=== PATIENT | male | born 1975 | race Caucasian/White ===

== ENCOUNTER 2019-01-25 18:05 | Inpatient (IN) ==
[2019-01-25] MEDS ORDERED: Piperacillin/Tazobactam 3.375 GM in 0.9 % Sodium Chloride Mini Bag 100 ML IVPB ONE (18:47)
[2019-01-25] MEDS ORDERED: 0.9 % Sodium Chloride 1,000 ML IVC ONE (18:48)
[2019-01-25] MEDS ORDERED: Morphine Sulfate 2 MG/ML SYRINGE IVP ONE (19:12)
--- NOTE | 2019-01-25 19:17 | Emergency Department Note ---
Disposition Clinical Impression: Septic joint Qualifiers: Septic arthritis location: hand Septic arthritis organism: due to unspecified organism Laterality: left Qualified Code(s): M00.9 - Pyogenic arthritis, unspecified Disposition: Admitted As Inpatient Condition: Good Time of Disposition: 20:23 Extremity Problem HPI - General Chief complaint: ED Extremity Problem,Nontraumatic Stated complaint: left index finger infection,needs admitted Time Seen by Provider: 01/25/19 18:46 Source: patient Mode of arrival: ambulatory Limitations: no limitations Nursing Notes Reviewed: Yes Vital Signs Reviewed: Yes - History of Present Illness HPI Narrative: 43 year old male presents to the eD with complaints of left index finger infection of which he obtained from a pocket knife that cut his figner while at work and then had it repaire ind the ED with sutures and then he went to grab his dog and it split it open and then got infected there after and required transfer to [facility] for jeffery placement and drain palced. Patient had followup with Hunter Troy today who removed the drain and is suspect that there may be a septic joint and has sent him here for admisison for OR wash out tomorrow. Pain Scale: 10 - Related Data Previous Rx's Medication Instructions Recorded Cephalexin [Keflex] 500 mg PO QID 7 Days capsule 01/21/19 Sulfamethoxazole/Trimeth DS 1 each PO BID 7 Days tablet 01/21/19 [Bactrim DS] Allergies Allergy/AdvReac Type Severity Reaction Status Date / Time No Known Allergies Allergy Verified 01/25/19 18:13 All systems ED: reviewed and negative except as stated. Review of Systems: As Per HPI Constitutional: Denies: fever, chills, weakness, weight change Eyes: Denies: eye pain, eye discharge, vision change ENT ED: Denies: ear pain, throat pain, dental pain, hearing loss, epistaxis, congestion, dysphagia Cardiovascular: Denies: chest pain, palpitations, dyspnea on exertion, edema, syncope Respiratory: Denies: cough, dyspnea, wheezes, hemoptysis, stridor Gastrointestinal: Denies: abdominal pain, nausea, vomiting, diarrhea, constipation, hematemesis, melena, hematochezia Genitourinary: Denies: urgency, dysuria, frequency, hematuria Musculoskeletal: Reports: as per HPI. Denies: back pain, neck pain, arthralgia, myalgia Integumentary: Denies: rash, abrasion, lesions Neurological: Denies: headache, weakness, numbness, paresthesias, confusion, abnormal gait, vertigo Psychiatric: Denies: anxiety, depression, suicidal thoughts, homicidal thoughts, auditory hallucinations, visual hallucinations Endocrine: Denies: fatigue Hematological/Lymphatic: Denies: easy bleeding, easy bruising Allergic/Immunologic: Denies: facial swelling, urticaria Past Medical History - Past Medical History Medical history: Reports: hypertension Psychiatric history: Reports: depression - Social History Smoking Status: Current every day smoker Smokeless Tobacco Status: No Alcohol use: Reports: none Drug use: Reports: none Physical Exam - General Limitations: no limitations General appearance: alert, in no apparent distress - Head Head exam: atraumatic, normocephalic, normal inspection - Eye Eye exam: Present: normal appearance, PERRL, EOMI - Expanded Eye Exam Pupils: Bilateral: reactive - ENT ENT exam: normal exam, normal oropharynx, mucous membranes moist - Expanded ENT Exam External ear exam: Present: normal external inspection Mouth exam: Present: normal external inspection Teeth exam: Present: normal inspection Throat exam: Present: normal inspection - Neck Neck exam: Present: normal inspection, full ROM, trachea midline - Chest Chest inspection: Present: normal inspection, symmetric chest wall rise - Respiratory Respiratory exam: Present: normal lung sounds bilaterally - Cardiovascular Cardiovascular exam: Present: regular rate, normal rhythm, normal heart sounds - Abdominal Exam Abdominal exam: Present: soft, Non-Tender. Absent: tenderness, distention, guarding, rebound, rigidity - Extremities Exam Extremities exam: Present: normal inspection, full ROM. Absent: tenderness, pedal edema - Expanded Upper Extremity Exam Shoulder exam: Present: normal inspection, full ROM Arm exam: Present: normal inspection, full ROM Elbow exam: Present: normal inspection, full ROM Forearm/Wrist exam: Present: normal inspection, full ROM Hand exam: Present: normal inspection, full ROM Hand L/R back image: 1 - erythematous, swollen, difficutly with range of motion, hardware presnt Vascular exam: Normal: capillary refill, radial pulse - Expanded Lower Extremity Exam Hip/Pelvis exam: Present: normal inspection, full ROM Upper leg exam: Present: normal inspection, full ROM Knee exam: Present: normal inspection, full ROM Lower leg exam: Present: normal inspection, full ROM Ankle exam: Present: normal inspection, full ROM Foot/toe exam: Present: normal inspection, full ROM Neurovascular/Tendon exam: Absent: motor deficit, sensory deficit, tendon deficit - Back Exam Back exam: Present: normal inspection, full ROM. Absent: tenderness - Neurological Exam Neurological exam: Present: alert, oriented X3 - Expanded Neurological Exam Patient oriented to: Present: person, place, time Coma Scale Eye Opening: Spontaneous Coma Scale Motor Response: Obeys Commands Coma Scale Verbal Response: Oriented Coma Scale Total: 15 - Psychiatric Psychiatric exam: Present: normal affect, normal mood - Skin Skin exam: Present: warm, dry, intact, normal color Course Course Narrative: I will page Dr. Tyler for reccs and then admit to medicine with vanc/zosyn therapy started - Consultations Consultation #1: discussed cse with Dr. Tyler and he plans to take the patient ot the OR tomorrow morning Time: 19:15 Consultation #2: discussed case with hospitalist and he accepts to medicine service. Time: 20:03 Vital Signs Temperature 98.9 F 01/25/19 18:13 Pulse Rate 83 01/25/19 18:13 Respiratory Rate 18 01/25/19 18:13 Blood Pressure 155/87 01/25/19 18:13 O2 Sat by Pulse Oximetry 96 01/25/19 18:13 Temperature 98.9 F 01/25/19 19:28 Pulse Rate 66 01/25/19 19:28 Respiratory Rate 16 01/25/19 19:28 Blood Pressure 130/77 01/25/19 19:28 O2 Sat by Pulse Oximetry 100 01/25/19 19:28 Oxygen Delivery Oxygen Delivery Room Air Extremity Problem, Nontraumati - Lab Data Result diagrams: 01/25/19 19:17 01/25/19 19:17 Lab Results 01/25/19 01/25/19 01/25/19 Range/Units 19:17 19:17 19:17 WBC 7.4 (4.3-11.1) K/mcL RBC 4.20 (4.19-5.50) M/mcL Hgb 13.4 (12.9-16.9) g/dL Hct 40.0 (37.5-50.1) % MCV 95.2 (83.0-100.0) fL MCH 31.9 (28.0-33.3) pg MCHC 33.5 (31.6-35.5) g/dL RDW 13.2 (11.5-14.5) % Plt Count 259 (140-400) K/mcL MPV 9.3 L (9.4-12.4) fL Immature Gran % 0.3 (0-4) % Seg Neutrophils % 52.0 % Lymphocytes % 38.5 % Monocytes % 5.7 % Eosinophils % 3.0 % Basophils % 0.5 % Neutrophils # 3.8 (1.6-8.9) K/mcL Lymphocytes # 2.8 (0.6-4.6) K/mcL Monocytes # 0.4 (0.0-1.3) K/mcL Eosinophils # 0.2 (0.0-0.6) K/mcL Basophils # 0.0 (0.0-0.2) K/mcL ESR (0-10) mm/hr Sodium 138 (136-145) mEq/L Potassium 3.3 L (3.5-5.1) mEq/L Chloride 107 (98-107) mEq/L Carbon Dioxide 26 (23-29) mEq/L BUN 6 (6-20) mg/dL Creatinine 0.92 (0.70-1.30) mg/dL Est GFR ( Amer) > 60 (> 60) Est GFR (Non-Af Amer) > 60 (> 60) BUN/Creatinine Ratio 7 (6-26) Glucose 118 H (70-105) mg/dL Calculated Osmolality 285 (280-300) Lactic Acid 1.2 (0.5-2.2) mmol/L Calcium 9.0 (8.6-10.3) mg/dL Total Bilirubin 0.2 L (0.3-1.0) mg/dL AST 9 L (13-39) Units/L ALT 10 (7-52) Units/L Alkaline Phosphatase 102 (34-104) Units/L C-Reactive Protein 23 H (Less than 10) mg/L Serum Total Protein 6.8 (6.4-8.9) g/dL Albumin 4.0 (3.5-5.7) g/dL Globulin 2.8 (2.4-3.5) g/dL Albumin/Globulin Ratio 1.4 (1.1-2.2) 01/25/19 Range/Units 19:17 WBC (4.3-11.1) K/mcL RBC (4.19-5.50) M/mcL Hgb (12.9-16.9) g/dL Hct (37.5-50.1) % MCV (83.0-100.0) fL MCH (28.0-33.3) pg MCHC (31.6-35.5) g/dL RDW (11.5-14.5) % Plt Count (140-400) K/mcL MPV (9.4-12.4) fL Immature Gran % (0-4) % Seg Neutrophils % % Lymphocytes % % Monocytes % % Eosinophils % % Basophils % % Neutrophils # (1.6-8.9) K/mcL Lymphocytes # (0.6-4.6) K/mcL Monocytes # (0.0-1.3) K/mcL Eosinophils # (0.0-0.6) K/mcL Basophils # (0.0-0.2) K/mcL ESR 38 H (0-10) mm/hr Sodium (136-145) mEq/L Potassium (3.5-5.1) mEq/L Chloride (98-107) mEq/L Carbon Dioxide (23-29) mEq/L BUN (6-20) mg/dL Creatinine (0.70-1.30) mg/dL Est GFR ( Amer) (> 60) Est GFR (Non-Af Amer) (> 60) BUN/Creatinine Ratio (6-26) Glucose (70-105) mg/dL Calculated Osmolality (280-300) Lactic Acid (0.5-2.2) mmol/L Calcium (8.6-10.3) mg/dL Total Bilirubin (0.3-1.0) mg/dL AST (13-39) Units/L ALT (7-52) Units/L Alkaline Phosphatase (34-104) Units/L C-Reactive Protein (Less than 10) mg/L Serum Total Protein (6.4-8.9) g/dL Albumin (3.5-5.7) g/dL Globulin (2.4-3.5) g/dL Albumin/Globulin Ratio (1.1-2.2)
[2019-01-25 19:33] LABS: Basophils % 0.5 %; Eosinophils # 0.2 K/mcL (0.0-0.6); Hemoglobin 13.4 g/dL (12.9-16.9); Immature Granulocytes % 0.3 % (0-4); Lymphocytes # 2.8 K/mcL (0.6-4.6); Lymphocytes % 38.5 %; Mean Corpuscular HGB Conc 33.5 g/dL (31.6-35.5); Mean Corpuscular Hemoglobin 31.9 pg (28.0-33.3); Mean Corpuscular Volume 95.2 fL (83.0-100.0); Mean Platelet Volume 9.3 fL (9.4-12.4); Monocytes # 0.4 K/mcL (0.0-1.3); Monocytes % 5.7 %; Neutrophils # 3.8 K/mcL (1.6-8.9); Platelet Count 259 K/mcL (140-400); Red Cell Distribution Width 13.2 % (11.5-14.5); White Blood Count 7.4 K/mcL (4.3-11.1)
[2019-01-25 19:53] LABS: Alanine Aminotransferase 10 Units/L (7-52); Albumin/Globulin Ratio 1.4 (1.1-2.2); Alkaline Phosphatase 102 Units/L (34-104); Aspartate Amino Transferase 9 Units/L (13-39); BUN/Creatinine Ratio 7 (6-26); Bilirubin,Total 0.2 mg/dL (0.3-1.0); Blood Urea Nitrogen 6 mg/dL (6-20); C-Reactive Protein 23 mg/L (Less than 10); Carbon Dioxide 26 mEq/L (23-29); Chloride 107 mEq/L (98-107); Globulin 2.8 g/dL (2.4-3.5); Glucose 118 mg/dL (70-105); Osmolality,Calculated 285 (280-300); Potassium 3.3 mEq/L (3.5-5.1); Sodium 138 mEq/L (136-145); Total Protein 6.8 g/dL (6.4-8.9); eGFR For African Americans > 60 (> 60); eGFR For Non-African Americans > 60 (> 60)
[2019-01-25] MEDS ORDERED: Tdap (Boostrix) Vaccine 0.5 ML SYRINGE IM ONE (20:02)
--- NOTE | 2019-01-25 21:28 | Internal Med History&Physical ---
Date of Encounter: 01/25/19 Time of Encounter: 21:20 Internal Medicine - H&P: HPI Chief complaint: Left finger pain Admitted From: Home Plans for Post Hospital Care: Home History of present illness: Mr. Miller is a 43 year old male with PMH Of PTSD, depression, HTN presented to the ED for left finger worsening. 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 Patient was a [employer] and he cleaned it, neosporin , and kept dressing changes. Pain at that time felt pain but was tolerable then it became worse and went to the ED where he got sutured. Patient then while picking up a dog busted the sutures and it became infected with severe pain, swelling, and numbness. Patient came back to the ED 3 days ago and was sent to [facility] where he underwent surgery. patient reported that he was recommended to stay another night without receiving IV abx, or pain meds and the patient did not feel need to stay there an additional night unless he is getting his pain and abx IV. The patient was offered to leave AMA and patient reported to have left without information, pain medications. Patient has been taking keflex and reported left finger worsneing sharp 15/10 pain and thus came to the ED. Personally reviewed patient's past medical, surgical, family and social history. Face to face encounter occurred on 01/25/2019 . CODE STATUS reviewed and is full code. Past Med Surg Social Fam HX - Past Medical History Medical history: hypertension Psychiatric history: depression - Past Surgical History Additional surgical history: right knee scope, L finger - Social History Smoking Status: Current every day smoker Packs per day: 1 Smokeless Tobacco Status: No Alcohol use: none Drug use: none Internal Medicine - H&P: Meds Cephalexin [Keflex] 500 mg PO QID 7 Days capsule 01/21/19 [Rx] Sulfamethoxazole/Trimeth DS [Bactrim DS] 1 each PO BID 7 Days tablet 01/21/19 [Rx] Allergy/AdvReac Type Severity Reaction Status Date / Time No Known Allergies Allergy Verified 01/25/19 18:13 All Systems PM: A 10-system review of systems was performed and is negative for pertinent findings except as documented above in the HPI. Review of systems: General: No unintentional weightloss, No fever Head: No headahce, No injury. Ears: No discharge, No earache Eyes: No drainage, No eye pain Mouth and Throat: No new ulcers, No pain Nose and Sinus: No new congestion, No pain, Respiratory: No cough, No sputum production, No dyspnea Cardiovascular: No chest pain, No palpitations. Gastrointestinal: No nausea, No vomiting. No abdominal pain. Genital Tract: No discharge, No pain Urinary Tract: No dysuria, No discharge. MSK: + new/worsening joint pain, + new/worsening muscle ache. Endocrine: No cold intolerance, No polyuria Psychological: No suicidal, No homocidal ideation. - Constitutional Vitals: Temp Pulse Resp BP Pulse Ox 98.9 F 66 16 130/77 100 01/25/19 19:28 01/25/19 19:28 01/25/19 19:28 01/25/19 19:28 01/25/19 19:28 Exam: General Appearance: Appearing as age, well-nourished in mild acute distress. Head: Atraumatic normocephalic Skin: Normal texture, normal turgor, warm, dry. left finger dressing present with decreased sensation to that hand. Eyes: Conjunctivae not pale with no erythema, drainage, or ulcers. Anicteric. Neck: No Lymphadenopathy in the anterior/posterior cervical chain. No thyromegaly, masses or ulcers. Trachea midline. Heart: RRR, no murmurs. Capillary refill 3 seconds Lungs: No accessory muscle usage, lungs clear to auscultation bilaterally, no wheezes or crackles. Extremities: No pitting edema, No clubbing, No cyanosis. Abdomen: Non-distended, normoactive bowel sounds. non-tender to palpation, no hepatomegally. No guarding. Neuro: AOx3. left hand decreased sensation MSK: Strength 5/5 Upper extremity equal bilaterally. Strength 5/5 Lower extremity equal bilaterally Internal Med - H&P Results - Labs CBC & Chem 7: 01/25/19 19:17 01/25/19 19:17 Labs: Short CBC 01/25/19 Range/Units 19:17 WBC 7.4 (4.3-11.1) K/mcL Hgb 13.4 (12.9-16.9) g/dL Hct 40.0 (37.5-50.1) % Plt Count 259 (140-400) K/mcL Neutrophils # 3.8 (1.6-8.9) K/mcL BMP 01/25/19 19:17 Sodium 138 Potassium 3.3 L Chloride 107 Carbon Dioxide 26 BUN 6 Creatinine 0.92 Glucose 118 H Calcium 9.0 Liver Function 01/25/19 Range/Units 19:17 Total Bilirubin 0.2 L (0.3-1.0) mg/dL AST 9 L (13-39) Units/L ALT 10 (7-52) Units/L Alkaline Phosphatase 102 (34-104) Units/L Albumin 4.0 (3.5-5.7) g/dL - Summary of Assessment and Plan Summary of Assessment and Plan: 1.Left finger septic joint: Patient is Left hand dominant. Failed outpatient antibiotics keflex and bactrim Vancomycin started. Pain med ordered. Orthopedic consultation 2.HTN uncontrolled: Unimproved with medications Started patient on Lisinopril 3.Cigarette Smoking: Nicotine patch 4.Depression: Failed outpatient medications Declined starting medication. NO SI or HI 5.Hyperglycemia: UA and A1c pending. DVT prophylaxis: Heparin Disposition: Patient anticipated hospital stay > 2 days - Time Spent With Patient Total time spent is greater than 37 minutes 50% in coordination of care (as d ocumented) at patient's floor/unit and/or counseling patient: Greater than 35 minutes
[2019-01-25] MEDS ORDERED: Naloxone 0.4 MG/ML INJ IVP PRN (21:43)
[2019-01-25] MEDS ORDERED: *HR* OxyCODONE Immed Rel 5 MG TABLET PO PRN (21:43)
[2019-01-25] MEDS ORDERED: Acetaminophen 325 MG TABLET PO PRN (21:43)
[2019-01-25] MEDS ORDERED: *HR* HYDROcodone/Acet 5/325 mg TABLET PO PRN (21:43)
[2019-01-25] MEDS ORDERED: Nicotine 2 MG GUM BC PRN (21:43)
[2019-01-25] MEDS ORDERED: Ringers Solution, Lactated 1,000 ML IVC SCH (21:45)
[2019-01-25] MEDS ORDERED: *HR* HYDROmorphone (PF) 1 MG/ML SYRINGE IVP ONE (21:46)
[2019-01-25] MEDS: Nicotine 14 MG PATCH.TD24 TD SCH (22:19)
[2019-01-25] MEDS: *HR* Heparin 5,000 UNIT/ML VIAL SQ SCH (22:19)
[2019-01-25 23:49] LABS: Bilirubin,Urine Negative (Negative); Blood,Urine Negative (Negative); Clarity,Urine Clear (Clear); Color,Urine Yellow (Yellow); Glucose,Urine (UA) Normal (Normal); Ketones,Urine Negative (Negative); Leukocyte Esterase,Urine Negative (Negative); Nitrite,Urine Negative (Negative); PH,Urine 6.5 pH Units (5.0-8.0); Protein,Urine Negative (Neg-Trace); Urobilinogen,Urine Normal (Normal)
[2019-01-26 04:59] LABS: Basophils # 0.1 K/mcL (0.0-0.2); Basophils % 0.7 %; Eosinophils # 0.2 K/mcL (0.0-0.6); Eosinophils % 2.6 %; Hematocrit 37.1 % (37.5-50.1); Hemoglobin 12.1 g/dL (12.9-16.9); Immature Granulocytes % 0.4 % (0-4); Lymphocytes % 39.8 %; Mean Corpuscular HGB Conc 32.6 g/dL (31.6-35.5); Mean Corpuscular Volume 98.1 fL (83.0-100.0); Mean Platelet Volume 9.6 fL (9.4-12.4); Monocytes # 0.4 K/mcL (0.0-1.3); Monocytes % 5.7 %; Neutrophils # 3.9 K/mcL (1.6-8.9); Platelet Count 207 K/mcL (140-400); Red Blood Count 3.78 M/mcL (4.19-5.50); Red Cell Distribution Width 13.4 % (11.5-14.5); Segmented Neutrophils % 50.8 %; White Blood Count 7.6 K/mcL (4.3-11.1)
[2019-01-26 05:07] LABS: Prothrombin Time 11.9 Seconds (9.4-12.1)
[2019-01-26 05:22] LABS: Alanine Aminotransferase 8 Units/L (7-52); Albumin 3.3 g/dL (3.5-5.7); Albumin/Globulin Ratio 1.4 (1.1-2.2); Alkaline Phosphatase 85 Units/L (34-104); Aspartate Amino Transferase 9 Units/L (13-39); BUN/Creatinine Ratio 7 (6-26); Bilirubin,Total 0.2 mg/dL (0.3-1.0); Blood Urea Nitrogen 6 mg/dL (6-20); Calcium 8.6 mg/dL (8.6-10.3); Carbon Dioxide 23 mEq/L (23-29); Chloride 110 mEq/L (98-107); Globulin 2.3 g/dL (2.4-3.5); Glucose 98 mg/dL (70-105); Osmolality,Calculated 282 (280-300); Phosphorous 3.8 mg/dL (2.7-4.5); Potassium 3.8 mEq/L (3.5-5.1); Sodium 137 mEq/L (136-145); Total Protein 5.6 g/dL (6.4-8.9); eGFR For African Americans > 60 (> 60); eGFR For Non-African Americans > 60 (> 60)
[2019-01-26] MEDS: *HR* Heparin 5,000 UNIT/ML VIAL SQ SCH ×2 (05:36→22:00)
--- NOTE | 2019-01-26 07:12 | Orthopedics Progress Note ---
Date of Encounter: 01/26/19 Time of Encounter: 07:08 Subjective Interval history: S: This patient is a 43-year-old male admitted from the office yesterday. about a week ago he sustained a laceration to the index finger dorsal PIP joint region which eventually got infected. He was seen at [place] where he underwent debridement and irrigation of the left index finger PIP joint for septic arthr itis followed by transarticular pinning. The patient left AGAINST MEDICAL ADVICE later that day and was eventually referred to me for evaluation. I did see him in the office yesterday where he was noted to have persistent swelling, redness, and a quarter-inch Zay drain from the joint with gross purulence emanating. Due to concern for persistent infection and the need for operative debridement the patient was referred to the emergency department for workup and admission in anticipation of I&D today. O: Afebrile on the vital signs are stable Dressing and splint on left index finger NV intact A: Septic arthritis of the left index finger proximal interphalageal joint P: Plan is for incision, drinage, irriation, and debridement of the left index finger. I anticipate he will need IV antibiotics for 4-6 weeks, with consult to infectious disease. The risks discussed included but were not limited to stiffness, bleeding, infection, blood clots, damage to neurovascular structures, tendons, ligaments, and bone. Also discussed was the risk of continued symptoms and possible need for further procedures. I did discuss the anesthesia risks including stroke, heart attack, and . I did discuss the reasonable, foreseeable postoperative course with the patient. The patient did wish to proceed and consent was obtained. Objective Vital signs: Vital Signs Temp Pulse Resp BP Pulse Ox 01/26/19 02:53 97.7 F 59 16 120/76 94 01/25/19 21:33 97.8 F 87 16 148/90 98 01/25/19 19:28 98.9 F 66 16 130/77 100 01/25/19 18:13 98.9 F 83 18 155/87 96 Intake and Output 01/25/19 01/25/19 01/26/19 15:59 23:59 07:59 Intake Total 580 / 580 0 / 0 Output Total 725 / 725 Balance -145 / -145 0 / 0 Intake: IV Fluids 100 / 100 Zosyn 3.375 GM In 0.9 % Sodium 100 / 100 Chloride (Mini-Bag +) 100 ML @ 25 mls/hr IVPB ONCE ONE Rx#: [id number] Oral 480 / 480 0 / 0 Output: Urine 725 / 725 Other: Meal Dinner Percent of Meal Consumed 100% Weight 83.915 kg 83.9 kg Blood Glucose* 90 Patient Weight 01/26/19 23:59 Weight 83.9 kg - Labs CBC & BMP: 01/26/19 04:08 01/26/19 04:08 Labs: Abnormal lab results RBC 3.78 M/mcL (4.19-5.50) L 01/26/19 04:08 Hgb 12.1 g/dL (12.9-16.9) L 01/26/19 04:08 Hct 37.1 % (37.5-50.1) L 01/26/19 04:08 MPV 9.3 fL (9.4-12.4) L 01/25/19 19:17 ESR 38 mm/hr (0-10) H 01/25/19 19:17 Potassium 3.3 mEq/L (3.5-5.1) L 01/25/19 19:17 Chloride 110 mEq/L (98-107) H 01/26/19 04:08 Glucose 118 mg/dL (70-105) H 01/25/19 19:17 Total Bilirubin 0.2 mg/dL (0.3-1.0) L 01/26/19 04:08 AST 9 Units/L (13-39) L 01/26/19 04:08 C-Reactive Protein 23 mg/L (Less than 10) H 01/25/19 19:17 Serum Total Protein 5.6 g/dL (6.4-8.9) L 01/26/19 04:08 Albumin 3.3 g/dL (3.5-5.7) L 01/26/19 04:08 Globulin 2.3 g/dL (2.4-3.5) L 01/26/19 04:08 Consult Discharge Plan - Plan Referrals: Dina Hernandez, [employer] [Primary Care Provider] -
[2019-01-26 07:49] LABS: Estimated Average Glucose 126 mg/dl
--- NOTE | 2019-01-26 07:53 | Internal Med Progress Note ---
Hospitalist Progress Note - Encounter Date of Encounter: 01/26/19 Time of Encounter: 07:53 - Subjective Interval History: Patient is rude and demanding and unrealistic, plus seems unable to comprehend seriousness of current finger infection despite mother at bedside pleading with him to stay in hospital, wait for surgery, and get IV abx. Says he's uncom fortable and wants to smoke, wants to walk around, wants to eat, etc. Denies fever, CP, SOB, leg swelling, decreased urination, rash other than L index finger. Does say it is draining pus. - Exam Vitals: Temp Pulse Resp BP Pulse Ox 97.7 F 59 16 120/76 94 01/26/19 02:53 01/26/19 02:53 01/26/19 02:53 01/26/19 02:53 01/26/19 02:53 Exam: General: NAD, good eye contact, disheveled, scowling Thoracic: Normal breath sounds b/l, no wheezing or crackles Cardio: Normal S1 and S2, regular rate and rhythm Abdomen: Soft, nontender Extremities: Warm, well perfused. DP pulses 2+ b/l. No pedal edema. Skin: L index finger with PIP swelling and purulent discharge/drainage Neuro: Awake, fully oriented. Speech fluent - Summary of Assessment and Plan Summary of Assessment and Plan: 1.Left finger septic joint: Patient is Left hand dominant. Failed outpatient antibiotics keflex and bactrim - empiric vanc and zosyn - pain control prn - Orthopedic consultation - to OR today 2.HTN uncontrolled: - new Lisinopril 3.Cigarette Smoking: Nicotine patch and gum prn 4.Depression: Declined starting medication. NO SI or HI 5. Impaired fasting glucose: a1c 6, will need outpatient follow up PPx: sqh Tele: no Activity: up ad rukhsana FEN: NPO until surgery then regular, no MIVF Lines: PIV Consults: Ortho, ID Code: Full Dispo: patient requires inpatient eval and management at this time, anticipate 2-3 days, will be homegoing Internal Medicine: Result - Labs CBC & Chem 7: 01/26/19 04:08 01/26/19 04:08 Labs: Short CBC 01/25/19 01/26/19 Range/Units 19:17 04:08 WBC 7.4 7.6 (4.3-11.1) K/mcL Hgb 13.4 12.1 L (12.9-16.9) g/dL Hct 40.0 37.1 L (37.5-50.1) % Plt Count 259 207 (140-400) K/mcL Neutrophils # 3.8 3.9 (1.6-8.9) K/mcL BMP 01/25/19 01/26/19 19:17 04:08 Sodium 138 137 Potassium 3.3 L 3.8 Chloride 107 110 H Carbon Dioxide 26 23 BUN 6 6 Creatinine 0.92 0.88 Glucose 118 H 98 Calcium 9.0 8.6 Liver Function 01/25/19 01/26/19 Range/Units 19:17 04:08 Total Bilirubin 0.2 L 0.2 L (0.3-1.0) mg/dL AST 9 L 9 L (13-39) Units/L ALT 10 8 (7-52) Units/L Alkaline Phosphatase 102 85 (34-104) Units/L Albumin 4.0 3.3 L (3.5-5.7) g/dL Urine 01/25/19 Range/Units 23:25 Urine Color Yellow (Yellow) Urine Clarity Clear (Clear) Urine pH 6.5 (5.0-8.0) pH Units Ur Specific [place] 1.010 (1.010-1.025) Urine Protein Negative (Neg-Trace) mg/dL Urine Glucose (UA) Normal (Normal) mg/dL - ABG Interpretation ABG results: PT/INR, D-dimer PT 11.9 Seconds (9.4-12.1) 01/26/19 04:08 Consult Discharge Plan - Plan Referrals: Dina Hernandez, [employer] [Primary Care Provider] -
[2019-01-26] MEDS ORDERED: Piperacillin/Tazobactam 3.375 GM in 0.9 % Sodium Chloride Mini Bag 100 ML IVPB SCH (08:00)
[2019-01-26] MEDS: Nicotine 14 MG PATCH.TD24 TD SCH (09:30)
--- NOTE | 2019-01-26 11:21 | Infectious Disease Consult ---
Infectious Disease-Consult - Encounter Date/Time Date of Encounter: 01/26/19 Time of Encounter: 11:17 - Data of Consult Patient: new to practice Reason for consult: Left index finger septic arthritis Consult date: 01/26/19 Requesting Physician: Wellington Juan Primary Care Provider: Dina Hernandez BROKER ASSISTANT - HPI HPI: Mr. Miller is a 43-year-old male with past medical history of hypertension, depression, and PTSD. The patient was admitted to the hospital 01/25/19 for left index finger septic arthritis. We are consulted to for further workup and treatment recommendations for left index finger septic arthritis. Briefly, the patient is a 43-year-old male with a past medical history as stated above. The patient presented to the emergency department at the direction of the orthopedics/hand team with complaints of left index finger septic arthritis. Last Friday, the patient sustained a laceration to his left index finger with a pocket knife. He treated himself at home and the wound was doing well until Friday when he went to grab his dog and the wound split back open. He was evaluated in the emergency department and had sutures placed. They discharged him on Bactrim and Keflex. 2 days later, he had progressively worsening redness and swelling and re-presented to the emergency department. He was then transferred to [facility] where he underwent some sort of surgical procedure that involved placement of hardware and a drain. He signed out AMA and proceeded to take the Keflex and Bactrim that he had left at home. He saw his PCP yesterday who then referred him to Dr. Kirkland who then advised him to come to the emergency department for evaluation. Upon arrival, he was afebrile hemodynamically stable. His white blood cell count was normal. Lactic acid and renal function were within normal limits. Urinalysis was negative for pyuria. ESR is elevated at 38 with a CRP of 23. Blood cultures were obtained 2 sets and are pending. He was started on vancomycin and Zosyn and was admitted to the hospital for further evaluation. Since admission, the patient has remained afebrile hemodynamically stable. His white blood cell count is normal. Orthopedics has been consulted and they are planning an operative I&D later today. Currently, he is on vancomycin and Zosyn. We have been asked to evaluate and make further recommendations. During my exam today, the patient endorses a history as stated above. He denies fevers, chills, rigors. He denies any headache or neck pain. Denies chest pain, shortness of breath, or cough. Denies nausea, vomiting, diarrhea, const ipation. Denies abdominal pain or urinary complaints. Denies oral thrush or skin rashes. Complains pain in the left index finger with intermittent radiation up the hand into his arm all the way up to his shoulder. He states his finger is red and swollen and warm to touch. The patient lives at home. He smokes pack of cigarettes per day. Denies alcohol or illicit drug use. Denies recent travel. Has dogs at home, but denies any bites or scratches. Denies chronic infectious diseases. - ROS Review of Systems: All systems reviewed and no additional remarkable complaints except as stated. - Results CBC & Chem 7: 01/26/19 04:08 01/26/19 04:08 - Exam Vitals: Temp Pulse Resp BP Pulse Ox 98.3 F 65 16 144/88 95 01/26/19 08:02 01/26/19 08:02 01/26/19 08:02 01/26/19 08:02 01/26/19 08:02 Exam: Head: Atraumatic, normal inspection, normocephalic. Eye: EOMI, PERRLA, no scleral icterus noted. ENT: Mucous membranes moist. No odontogenic infection noted. Neck: Normal inspection, no meningismus. Respiratory: Clear to auscultation. No rales, respiratory distress, rhonchi, or wheezes noted. Cardiovascular: Regular rate and rhythm, S1 and S2 audible. No murmurs, rubs, or gallops. GI: Soft, nondistended, normal bowel sounds. Extremities:No joint swelling, pedal edema, or tenderness noted. Left index finger dressing/flank clean, dry, and intact. Back: Normal inspection. No vertebral tenderness noted. Neurological: Alert, oriented 3, no focal deficits. Psychiatric: normal affect, agitated. Skin: Dry, intact, warm. Normal color. No rashes. Cephalexin [Keflex] 500 mg PO QID 7 Days capsule 01/21/19 [Rx] Sulfamethoxazole/Trimeth DS [Bactrim DS] 1 each PO BID 7 Days tablet 01/21/19 [Rx] Allergy/AdvReac Type Severity Reaction Status Date / Time ketchup Allergy Hives Verified 01/25/19 23:19 shellfish derived Allergy Anaphylaxis Verified 01/25/19 23:19 - Assessment and Plan (1) Septic joint Current Visit: Yes Status: Acute Location: Left index finger PIP. Causative organism: I was able to call the micro-lab at [facility] who tells me that his previous intra-op cultures are positive for MSSA and coag-negative staph. Secondary to recent laceration. Tetanus vaccine UTD (received in the ED). Status post I&D at [facility] 01/23/19. Exact details unclear. Orthopedics consult. Planning operative debridement later today. ESR elevated at 38, CRP 23. Currently on vancomycin and Zosyn. Qualifiers: Septic arthritis location: hand Septic arthritis organism: due to unspecified organism Laterality: left Qualified Code(s): M00.9 - Pyogenic arthritis, unspecified SNOMED Code(s): 460911018 (2) Cellulitis Current Visit: No Status: Acute Location: Left index finger. Causative organism: MSSA coag-negative staph. Likely secondary to recent laceration. Currently on Vanc and Zosyn. Qualifiers: Site of cellulitis: unspecified site Qualified Code(s): L03.90 - Cellulitis, unspecified SNOMED Code(s): 527984161 (3) Tobacco use Current Visit: Yes Status: Acute Reports smoking 1 PPD. NRT per the primary team. SNOMED Code(s): 722077947 - Recommendations Recommendations: Get culture results from [facility]. Await blood cultures to finalize. Await intra-op cultures and findings. Please send specimen for culture (aerobic, anaerobic, AFB, and fungal). Wound care per ortho's recommendations. Continue Vancomycin IV. Pharmacy to dose. Goal trough ~15. Continue Zosyn 3.37 grams IV Q8H. Duration of treatment depends on the clinical picture. Monitor labs and for drug toxicity and dose-adjust antibiotics. Past Med Surg Social Fam HX - Past Medical History Attestation: Yes The following information was validated with the patient. Source: patient, old records reviewed, nursing notes reviewed Medical history: hypertension Psychiatric history: depression - Past Surgical History Additional surgical history: right knee scope, L finger - Social History Smoking Status: Current every day smoker Packs per day: 1 Smokeless Tobacco Status: No Alcohol use: none Drug use: none Occupational status: employed Current living situation: Home - Independent Activity Level: Independent ambulation Recent Out of Country Travel Within the Last 8 Weeks: No Exposure or Possible Exposure to Illness During Travel: No Consult Discharge Plan - Plan Referrals: Dina Hernandez BROKER ASSISTANT [Primary Care Provider] - - Attending Attestation I have personally performed a face to face evaluation on this patient. I have reviewed and agree with the care plan. This is an addendum to original report dictated by Ania Contreras CNP. Please refer to Ania's note for full detail. Agree with above history of present illness, review of system and physical exam findings. Patient was seen by me after surgery. He discussed his room. Clinically doing well. Complains of some pains finger. Asking for food. Assessment and plan: Septic arthritis of the left index [facility] and coag-negative staph with final susceptibility pending Status post I&D earlier today, Intra-Op cultures pending Tobacco abuse Poor dentition Recommendations For now we will continue vancomycin and will call vancomycin trough 1015 Continue Zosyn Await cultures to finalize Once cultures finalize we will tailor antibiotics accordingly Duration of treatment probably 2 weeks of IV followed by 2 weeks of oral if an o ral options exist Monitor labs and for drug toxicity
[2019-01-26] MEDS ORDERED: Albuterol 2.5 MG/3 ML NEBULIZER IH ONE (13:50)
[2019-01-26] MEDS ORDERED: *HR* OxyCODONE Immed Rel 5 MG TABLET PO PRN (13:52)
--- NOTE | 2019-01-26 13:52 | Anesthesia Evaluation PreOp ---
Date of Encounter: 01/26/19 Time of Encounter: 14:00 - Past History Planned Operation: Incision Drainage Left Hand Cardiac History: HTN Pulmonary History: Smoker ASSISTANT REAL ESTATE MANAGER History: Denies Any Significant HX Other Medical History: Denies Any Significant HX Alcohol Use: none Drug use: none Medications and Allergies Cephalexin [Keflex] 500 mg PO QID 7 Days capsule 01/21/19 [Rx] Sulfamethoxazole/Trimeth DS [Bactrim DS] 1 each PO BID 7 Days tablet 01/21/19 [Rx] Allergy/AdvReac Type Severity Reaction Status Date / Time ketchup Allergy Hives Verified 01/25/19 23:19 shellfish derived Allergy Anaphylaxis Verified 01/25/19 23:19 - Meds/Allergy Pre-op Review Medications Reviewed: Yes Allergies Reviewed: Yes Beta Blockers on Current Med List: No Anesthesia Results - Labs 01/26/19 04:08 01/26/19 04:08 Anesthesia Exam Vital Signs/O2 Sat/Glucose, Most Current Temp Pulse Resp BP Pulse Ox 01/26/19 12:26 98.4 F 57 14 137/85 97 Height: 5'10 Weight: 184 lbs NPO (# of Hours): MN Pain Scale: 0 - HEENT Pupil (Motor): Pupils equal, EOMI Mallampati: II Teeth: Missing, Poor dentition Oral Opening: Greater than 3 - ASSISTANT REAL ESTATE MANAGER LOC: Oriented ASSISTANT REAL ESTATE MANAGER Motor: Normal RUE, Normal LUE, Normal RLE, Normal LLE, Normal Face ASSISTANT REAL ESTATE MANAGER Sensory: Normal: RUE, LUE, RLE, LLE, Face - Cardiac Rhythm: Regular Murmur: None JVD: No Carotid Bruit: No - Pulmonary Breath Sounds: bilateral Clear Respiratory Effort: Symmetrical Anesthesia Assess/Plan ASA Score: 2 Level of consciousness: Cooperative, Oriented Anesthetic Plan: General Autologous Blood: No Monitoring Plan: Standard Monitors Recovery Plan: Other (Discussed GA, agrees to proceed)
[2019-01-26] MEDS ORDERED: Albuterol 2.5 MG/3 ML NEBULIZER ONE (13:56)
[2019-01-26] MEDS ORDERED: Famotidine 20 MG/2 ML VIAL ONE (13:58)
[2019-01-26] MEDS ORDERED: Dexamethasone 4 MG/ML VIAL ONE (13:58)
[2019-01-26] MEDS ORDERED: *HR* FentaNYL (PF) 100 MCG/2 ML VIAL ONE (13:58)
[2019-01-26] MEDS ORDERED: Lidocaine -MPF 2% 2 ML VIAL ONE (13:58)
[2019-01-26] MEDS ORDERED: *HR* Propofol 200 MG/20 ML VIAL IVP ONE (13:58)
[2019-01-26] MEDS ORDERED: Acetaminophen IV 1,000 MG/100 ML INFUS..BTL ONE (13:58)
[2019-01-26] MEDS ORDERED: Ondansetron 4 MG/2 ML VIAL ONE (13:58)
[2019-01-26] MEDS ORDERED: Bupivacaine/EPI 1:200k 0.5%PF 10 ML VIAL ONE (14:01)
[2019-01-26] MEDS ORDERED: Nicotine 21 MG PATCH.TD24 TD SCH (15:00)
--- NOTE | 2019-01-26 15:07 | Orthopedic Operative Note ---
Date of procedure: 01/26/19 Procedure: OPERATIVE REPORT SURGEON: Greg Tyler MD PREOPERATIVE DIAGNOSIS: Left index finger proximal interphalangeal joint septic arthritis POSTOPERATIVE DIAGNOSIS: Left index finger proximal interphalangeal joint septic arthritis PROCEDURE: Pin removal from the left index finger proximal interphalangeal joint with incision, drainage, irrigation, and debridement of the left index finger and proximal interphalangeal joint ANESTHESIA: Gen. anesthesia SPECIMENS: Left index finger proximal interphalangeal joint swabs for culture, both aerobic and anaerobic PREOPERATIVE NOTE The surgical plan was reviewed with the patient. The risks, benefits, alternatives, and potential complications of this procedure were discussed with the patient including injury to veins, arteries, nerves, tendons, ligaments, and bone. Also discussed were the risks of infection, bleeding, pain, blood clots, the possible need for a blood transfusion, the possible need for further procedures, heart attack, stroke, and . Additional risks include persistent infection and the need for further debridements. All of this was explained in simple terms, and the patient verbalized understanding and wished to proceed. Consent was given to proceed with surgery. PROCEDURE: The patient was seen in the preoperative holding area where the identify and the consent were confirmed. The left index finger was marked. Final questions were answered. The patient was brought back to the operating room and placed supine on the operating room table. A huddle was performed with the patient and all vital surgical team members confirming patient identity, the correct procedure, and the correct operative site. Gen. anesthesia was administered. The operative extremity was prepped and draped in the usual sterile fashion. A surgical time out was performed immediately preceding the incision with all personnel in the operating room to confirm patient identity, the correct operative site and extremity, correct radiographic studies, availability of appropriate surgical equipment, and agreement on the planned procedure. The tourniquet was inflated without exsanguination. There is a transverse surgical wound over the dorsal index proximal interphalangeal joint. The stitches were taken down and a small amount of gross purulence was returned from the wound. This was swabbed for culture. The wound was full-thickness down to the joint, through the central slip. Due to the deep infection and contam ination of the K wire, this was removed uneventfully with a plier. The cartilage surfaces of the proximal phalanx and middle phalanx were intact with the exception of the K wire hole. The wound was copiously irrigated with 3 L of saline. There is no devitalized tissue. Due to concern for difficulty of clearing the infection with foreign material the decision was made to close the skin without any pinning of the joint or repairing of the tendon. The skin was closed loosely with interrupted 4-0 nylon stitches. There was a drain hole distally that was left open to allow for drainage. A soft, sterile dressing was applied followed by an AlumaFoam splint to keep the PIP joint extended. The tourniquet was deflated. The instrument, sponge, and needle counts were correct after wound closure. POST OPERATIVE PLAN: Continue IV antibiotics until cultures delineate. The infectious disease specialists are consulted and I anticipate 4-6 weeks of IV antibiotics. The patient is aware of the risk of needing repair or reconstruction of the central slip in the future or the need for further debridements for persistent infection. He is aware of the risk of needing fusion of the PIP joint in the future or even amputation. Was there an economic research assistant present: No Estimated blood loss (cc): 1
[2019-01-26] MEDS ORDERED: Naloxone 0.4 MG/ML INJ IVP PRN (15:41)
[2019-01-26] MEDS ORDERED: Nicotine 2 MG GUM BC PRN (15:41)
[2019-01-26] MEDS ORDERED: Acetaminophen 325 MG TABLET PO PRN (15:41)
--- NOTE | 2019-01-26 16:00 | Anesthesia Evaluation Post Op ---
Date of Encounter: 01/26/19 Time of Encounter: 16:00 - Vital Signs Vital Signs: Vital Signs/O2 Sat/Glucose, Most Current Temp Pulse Resp BP Pulse Ox 01/26/19 15:24 97.1 F L 54 16 121/62 99 01/26/19 15:14 53 17 117/64 99 01/26/19 15:04 52 14 110/69 96 01/26/19 14:54 98.1 F 55 16 92/46 92 01/26/19 12:26 98.4 F 57 14 137/85 97 - Lungs Lungs: Clear Ascult./Percussion - Airway Airway: Non-obstructed - Cardiovascular Regular Rate - Mental Status Mental Status: Alert & Oriented, Answers Appropriately - Pain Pain Scale: 0 - Nausea Vomiting Nausea Vomiting: Not Present - Hydration Hydration: Tolerates oral liquids - Discharge PostOp Status: Transfer Patient to floor
[2019-01-26] MEDS: *HR* HYDROcodone/Acet 5/325 mg TABLET PO PRN ×2 (16:15→22:19)
[2019-01-26] MEDS: Piperacillin/Tazobactam 3.375 GM in 0.9 % Sodium Chloride Mini Bag 100 ML IVPB SCH (16:15)
[2019-01-26] MEDS: *HR* OxyCODONE Immed Rel 5 MG TABLET PO PRN (20:05)
[2019-01-27] MEDS: *HR* OxyCODONE Immed Rel 5 MG TABLET PO PRN ×3 (06:18→17:13)
[2019-01-27] MEDS: *HR* Heparin 5,000 UNIT/ML VIAL SQ SCH ×2 (06:27→14:24)
--- NOTE | 2019-01-27 07:18 | Orthopedics Progress Note ---
Date of Encounter: 01/27/19 Time of Encounter: 07:16 Subjective Interval history: S: The patient is resting in bed comfortably with expected pain to the left index finger O: Afebrile on the vital signs are stable The stitches are intact Mild swelling of the digit. Slight improved redness over the index finger PIP joint region No purulence or significant drainage Neurovascularly intact distally Cultures pending A: I and D of the left index finger PIP joint for septic arthritis P: Continue local wound care, PIP extension splinting, and IV antibiotics under the direction of infectious disease specialists. Follow-up cultures. Objective Vital signs: Vital Signs Temp Pulse Resp BP Pulse Ox 01/27/19 06:59 98.1 F 65 15 144/87 97 01/27/19 03:34 97.8 F 61 17 148/91 97 01/26/19 23:42 97.8 F 60 17 137/92 96 01/26/19 18:40 98.5 F 77 18 151/72 96 01/26/19 17:40 97.9 F 56 18 152/81 98 01/26/19 17:02 97.9 F 63 18 145/81 98 01/26/19 16:35 98.1 F 66 16 149/84 97 01/26/19 16:00 98.1 F 68 16 141/80 98 01/26/19 15:24 97.1 F L 54 16 121/62 99 01/26/19 15:14 53 17 117/64 99 01/26/19 15:04 52 14 110/69 96 01/26/19 14:54 98.1 F 55 16 92/46 92 01/26/19 12:26 98.4 F 57 14 137/85 97 01/26/19 08:02 98.3 F 65 16 144/88 95 Intake and Output 01/26/19 01/26/19 01/27/19 15:59 23:59 07:59 Intake Total 100 / 450 350 / 450 100 / 100 Output Total 401 / 401 600 / 600 Balance -301 / 49 350 / 49 -500 / -500 Intake: IV Fluids 100 / 450 350 / 450 100 / 100 Zosyn 3.375 GM In 0.9 % Sodium 100 / 200 100 / 200 100 / 100 Chloride (Mini-Bag +) 100 ML @ 25 mls/hr IVPB Q8HR [facility] Rx#: [id number] Vancocin 1,250 MG In 0.9 % 250 / 250 Sodium Chloride 250 ML @ 167 mls/hr IVPB Q12H [facility] Rx#: [id number] Output: Urine 400 / 400 600 / 600 Estimated Blood Loss Other: Meal Dinner Percent of Meal Consumed 100% Blood Glucose* 91 - Labs CBC & BMP: 01/26/19 04:08 01/26/19 04:08 Labs: Abnormal lab results RBC 3.78 M/mcL (4.19-5.50) L 01/26/19 04:08 Hgb 12.1 g/dL (12.9-16.9) L 01/26/19 04:08 Hct 37.1 % (37.5-50.1) L 01/26/19 04:08 MPV 9.3 fL (9.4-12.4) L 01/25/19 19:17 ESR 38 mm/hr (0-10) H 01/25/19 19:17 Potassium 3.3 mEq/L (3.5-5.1) L 01/25/19 19:17 Chloride 110 mEq/L (98-107) H 01/26/19 04:08 Glucose 118 mg/dL (70-105) H 01/25/19 19:17 Hemoglobin A1c 6.0 % (-5.6) H 01/26/19 04:08 Total Bilirubin 0.2 mg/dL (0.3-1.0) L 01/26/19 04:08 AST 9 Units/L (13-39) L 01/26/19 04:08 C-Reactive Protein 23 mg/L (Less than 10) H 01/25/19 19:17 Serum Total Protein 5.6 g/dL (6.4-8.9) L 01/26/19 04:08 Albumin 3.3 g/dL (3.5-5.7) L 01/26/19 04:08 Globulin 2.3 g/dL (2.4-3.5) L 01/26/19 04:08 Consult Discharge Plan - Plan Referrals: Dina Hernandez, OIL PIPE INSPECTOR [Primary Care Provider] -
[2019-01-27] MEDS: Piperacillin/Tazobactam 3.375 GM in 0.9 % Sodium Chloride Mini Bag 100 ML IVPB SCH ×2 (08:04)
--- NOTE | 2019-01-27 10:29 | Infectious Disease Progress No ---
ID Progress Note Date of Encounter: 01/27/19 Time of Encounter: 10:27 - Subjective Subjective: Patient seen and examined. No acute events noted overnight. Patient states he feels better today. Denies fevers, chills, rigors. Denies chest pain, shortness of breath, or cough. Denies nausea, vomiting, diarrhea, or constipation. Denies abdominal pain or urinary complaints. States the pain to his left index finger and arm are improved. Denies oral thrush or skin rashes. States appetite is good. States she has not had a bowel movement since admission. - Objective CBC & Chem 7: 01/26/19 04:08 01/26/19 04:08 - Exam Vitals: Temp Pulse Resp BP Pulse Ox 98.2 F 70 16 158/90 97 01/27/19 10:17 01/27/19 10:17 01/27/19 10:17 01/27/19 10:17 01/27/19 10:17 Exam: Head: Atraumatic, normal inspection, normocephalic. Eye: EOMI, PERRLA, no scleral icterus noted. ENT: Mucous membranes moist. No odontogenic infection noted. Neck: Normal inspection, no meningismus. Respiratory: Clear to auscultation. No rales, respiratory distress, rhonchi, or wheezes noted. Cardiovascular: Regular rate and rhythm, S1 and S2 audible. No murmurs, rubs, or gallops. GI: Soft, nondistended, normal bowel sounds. Extremities:No joint swelling, pedal edema, or tenderness noted. Left index finger dressing clean, dry, and intact. Neurological: Alert, oriented 3, no focal deficits. Psychiatric: normal affect, agitated. Skin: Dry, intact, warm. Normal color. No rashes. - Assessment and Plan (1) Septic joint Status: Acute Location: Left index finger PIP. Causative organism: I was able to call the micro-lab at [facility] who tells me that his previous intra-op cultures are positive for MSSA and coag-negative staph. Secondary to recent laceration. Highly likely CONS is contaminant. Tetanus vaccine UTD (received in the ED). Status post I&D at [facility] 01/23/19. Exact details unclear. Orthopedics consult. Status post PEG removal from the left index finger proximal interphalangeal joint with incision, drainage, irrigation, and debridement of the left index finger and proximal interphalangeal joint 01/26/[address] Tyler. Operative note reviewed. Intraoperative cultures are pending. ESR elevated at 38, CRP 23. Currently on Zosyn. Qualifiers: Septic arthritis location: hand Septic arthritis organism: due to unspecified organism Laterality: left Qualified Code(s): M00.9 - Pyogenic arthritis, unspecified SNOMED Code(s): 442572690 (2) Cellulitis Status: Inactive Location: Left index finger. Causative organism: MSSA. Likely secondary to recent laceration. Currently on Vanc and Zosyn. Qualifiers: Site of cellulitis: other site Qualified Code(s): L03.818 - Cellulitis of other sites SNOMED Code(s): 997880284 (3) Tobacco use Status: Acute Reports smoking 1 PPD. NRT per the primary team. SNOMED Code(s): 783564300 - Recommendations Recommendations: Await blood cultures to finalize. Await intra-op cultures. Wound care per ortho's recommendations. Discontinue Vanc and Zosyn. Start cefazolin 2 grams IV Q8H. Duration of treatment depends on the clinical picture, but likely 4-6 weeks. Monitor labs and for drug toxicity and dose-adjust antibiotics. Consult Discharge Plan - Plan Referrals: [facility] [Other] - 01/28/19 4:00 pm ( Go to the [place] [facility] - [facility]) Ania Contreras MACHINE ATTENDANT [Advanced Practice Nurse] - 02/11/19 3:20 pm Dina Hernandez CNP [Primary Care Provider] - Greg Tyler MD [Partnered Physician] - 02/03/19 9:10 am Prescriptions: Ceftriaxone Sodium [Ceftriaxone] 2 gm IV Q24H #14 vial.port Prescription Printed Oxycodone HCl 5 mg PO Q8H PRN 7 Days #10 tablet PRN Reason: Analgesia Prescription Printed - Attending Attestation I have personally performed a face to face evaluation on this patient. I have re viewed and agree with the care plan. History and Exam by me shows: Assessment and plan: Septic arthritis of the left index finger [facility] MSSA and coag-negative staph with final susceptibility pending Status post I&D earlier today, Intra-Op cultures pending Tobacco abuse Poor dentition Recommendations Await blood cultures to finalize. Await intra-op cultures. Wound care per ortho's recommendations. Discontinue Vanc and Zosyn. Start cefazolin 2 grams IV Q8H. Duration of treatment depends on the clinical picture, but likely 4-6 weeks. Monitor labs and for drug toxicity and dose-adjust antibiotics.
--- NOTE | 2019-01-27 15:04 | Discharge Summary ---
Orders not resulted at time of discharge: Pending orders 01/25/19 19:10 Culture,Blood [] Stat 01/26/19 14:35 Culture,Anaerobic [] Routine Culture,Wound,with Gram Stain [] Routine Date of Encounter: 01/27/19 Time of Encounter: 15:02 - Discharge Diagnosis (1) Septic joint Priority: Primary Status: Acute Qualifiers: Septic arthritis location: hand Septic arthritis organism: due to unspecified organism Laterality: left Qualified Code(s): M00.9 - Pyogenic arthritis, unspecified (2) Cellulitis Priority: Secondary Status: Acute Qualifiers: Site of cellulitis: other site Qualified Code(s): L03.818 - Cellulitis of other sites (3) Infectious tenosynovitis Priority: Secondary Status: Acute (4) Tobacco use Priority: Secondary Status: Acute (5) Left hand pain Priority: Secondary Status: Acute (6) Swelling of left index finger Priority: Secondary Status: Acute (7) Laceration Priority: Secondary Status: Acute Hospital course: Mr. Milelr is an otherwise healthy 43 year old male who presented with left second digit PIP septic joint with surrounding cellulitis after a laceration injury and failing outpatient therapy. Recently presented to [facility] and had I&D completed with intraoperative cultures growing MSSA and coag-negative staph. Reportedly left AMA from [place] but symptoms worsened and patient represented to this hospital. Ortho was consulted and patient was taken back to the OR for incision, drainage, irrigation, and debridement of the left index finger and proximal interphalangeal joint. ID consulted and recommended 2 weeks of IV cefazolin followed by 2 weeks of oral antibiotics, however, patient does not have insurance. Decided that ceftriaxone may be best option in this setting given once a day dosing. Discharged with 2 weeks of IV ceftriaxone with follow-up with ID in 2 weeks to schedule oral antibiotics and follow-up with the Ortho in 1 week. - Discharge Medications Prescriptions: New Ceftriaxone Sodium [Ceftriaxone] 2 gm IV Q24H #14 [email or web address] Discontinued Sulfamethoxazole/Trimeth DS [Bactrim DS] 1 each PO BID 7 Days tablet Cephalexin [Keflex] 500 mg PO QID 7 Days capsule Home Medications: Ceftriaxone Sodium [Ceftriaxone] 2 gm IV Q24H #14 [email or web address].port 01/27/19 [Rx] Allergies/Adverse Reactions: Allergy/AdvReac Type Severity Reaction Status Date / Time ketchup Allergy Hives Verified 01/25/19 23:19 shellfish derived Allergy Anaphylaxis Verified 01/25/19 23:19 Date of admission: 01/25/19 21:43 Primary care physician: Dina Hernandez CNP Consults: 01/25/19 18:47 Consult to Orthopedic Surgery [CONS] Stat Consulting Provider: Greg Tyler Reason for Consult: septic joint Time Notified: 18:48 Call Completed: Yes 01/26/19 07:49 Consult to Infectious Diseases [CONS] Routine Consulting Provider: [facility] [place] Reason for Consult: L index finger septic arthritis Call Completed: No 01/27/19 10:33 Consult to Invasive Line Access Team [CONS] Routine Reason for Consult: need midline for IV ABs x2w Line Type: Midline Call Completed: No 01/27/19 15:00 Consult to Invasive Line Access Team [CONS] Routine Reason for Consult: need powerglide Line Type: EPIV Call Completed: Yes - Constitutional Vitals: Temp Pulse Resp BP Pulse Ox 98.1 F 71 16 158/90 98 01/27/19 14:31 01/27/19 14:31 01/27/19 14:31 01/27/19 10:17 01/27/19 14:31 Exam: General: NAD, good eye contact, disheveled, scowling Thoracic: Normal breath sounds b/l, no wheezing or crackles Cardio: Normal S1 and S2, regular rate and rhythm Abdomen: Soft, nontender Extremities: Warm, well perfused. DP pulses 2+ b/l. No pedal edema. Skin: L index finger with PIP swelling and purulent discharge/drainage Neuro: Awake, fully oriented. Speech fluent - Patient Status Disposition: Home, Self-Care Condition: Good Overall status at discharge: patient is progressing back to baseline - Discharge Instructions Follow Up With: Dina Hernandez CNP [Primary Care Provider] - - Diet and Activity Activity: increase activity as tolerated Diet: advance to your usual diet
[2019-01-27] MEDS: *HR* HYDROcodone/Acet 5/325 mg TABLET PO PRN (15:13)
[2019-01-27 15:34] VITALS: BP 136/79
[2019-01-27] MEDS ORDERED: cefTRIAXone 2,000 MG in Water for inj. (sterile) 20 ML IVP SCH (16:00)
[2019-01-27] MEDS ORDERED: ceFAZolin 2,000 MG in 0.9 % Sodium Chloride 100 ML IVPB SCH (16:00)
[2019-01-27] MEDS ORDERED: Aminoglycoside Consult 1 EACH MC ONE (17:24)
== END 2019-01-27 17:25 | disposition home or self-care (01) | DRG 506 ==
LOC: EMEROOARM 18:05 → 3ANU 18:05 → SUATTDRO 21:43
PROVIDERS: ADMIT Internal Medicine; ATTEND Internal Medicine